=== PATIENT | male | born 1960 | race Caucasian/White ===

== ENCOUNTER 2018-09-16 08:22 | Emergency (ER) | payer SELFPAY ==
[2018-09-16] MEDS ORDERED: 0.9 % SODIUM CHLORIDE 1,000 ML BAG IV ONE (08:34)
[2018-09-16] MEDS ORDERED: KETOROLAC 30 MG/ML VIAL IVP ONE (08:34)
--- NOTE | 2018-09-16 08:39 | Emergency Department Record ---
History of Present Illness - General Chief Complaint: Abdominal Pain Stated Complaint: ABD PAIN Time Seen by Provider: 09/16/18 08:34 Source: Patient, Family Mode of Arrival: Ambulatory Limitations: No limitations - History of Present Illness Initial Comments: 58 yo male presents with RUQ pain for the last four days. The pain is sharp and aches. The pain comes and goes but seems to occur about 30 minutes after meals. He has loss of appetite and nausea but no vomiting or diarrhea. His stool has become softer during the 4 days. No blood in his stools. No rash. No chest pain or shortness of breath. No fevers or chills. No history of abdominal surgery. The pain remains in the RUQ without significant radiation and does not cross the midline or go to the chest or back. No relation to position or activity or exertion. No current PCP. The pain at the time of this interview is mild. MD Complaint: Abdominal pain (RUQ) -: Days(s) (4) Location: RUQ Radiation: RUQ Migration to: RUQ Quality: Aching, Cramping, Sharp Consistency: Intermittent Improves With: Nothing Worsens With: Eating Context: Other Associated Symptoms: Anorexia - Related Data Previous Rx's Medication Instructions Recorded Ranitidine HCl [Zantac] 150 mg PO BID #60 tablet 09/16/18 Allergies Allergy/AdvReac Type Severity Reaction Status Date / Time No Known Drug Allergies Allergy Verified 09/16/18 08:31 Review of Systems Constitutional: Denies: Chills, Fever, Malaise, Weakness Eyes: Denies: Eye discharge, Eye pain, Photophobia, Vision change ENT: Denies: Congestion, Dental pain, Ear pain, Throat pain Respiratory: Denies: Cough, Dyspnea, Hemoptysis, Stridor, Wheezes Cardiovascular: Denies: Chest pain, Palpitations, Syncope Endocrine: Denies: Fatigue, Polydipsia, Polyuria Gastrointestinal: Reports: As per HPI, Abdominal pain, Nausea. Denies: Constipation, Diarrhea, Hematemesis, Hematochezia, Melena, Vomiting Genitourinary: Denies: Dysuria, Frequency, Hematuria Musculoskeletal: Reports: Arthralgia, Gout. Denies: Back pain, Myalgia Skin: Denies: Bruising, Change in color, Rash Neurological: Denies: Confusion, Headache Psychiatric: Denies: Anxiety Hematological/Lymphatic: Denies: Blood Clots, Easy bleeding, Easy bruising, Swollen glands Physical Exam - General General Appearance: Alert, Oriented x3, Cooperative, No acute distress Limitations: No limitations - Head Head exam: Atraumatic, Normal inspection - Eye Eye exam: Normal appearance, PERRL. negative: Conjunctival injection, Scleral icterus - ENT ENT exam: Normal exam Ear exam: Normal external inspection Nasal Exam: Normal inspection Mouth exam: Normal external inspection - Neck Neck exam: Normal inspection - Respiratory Respiratory exam: Normal lung sounds bilaterally. negative: Respiratory distress - Cardiovascular Cardiovascular Exam: Regular rate, Normal rhythm, Normal heart sounds - GI/Abdominal GI/Abdominal exam: Soft. negative: Distended, Guarding, Rebound, Rigid, Tenderness - Rectal Rectal exam: Deferred - exam: Deferred - Extremities Extremities exam: Normal inspection. negative: Pedal edema - Back Back exam: Denies: CVA tenderness (R), CVA tenderness (L) - Neurological Neurological exam: Alert, Oriented X3 - Psychiatric Psychiatric exam: Normal affect, Normal mood. negative: Agitated, Anxious - Skin Skin exam: Dry, Intact, Normal color, Warm Course - Reevaluation(s) Reevaluation #1: 09/16/18 09:07 The CBC was reviewed WBC is 15. The Hgb is 15 09/16/18 09:42 The TBili is 1.1 and the AST is 153 Normal ALT, Alk Phos and Lipase. 09/16/18 10:02 The US was negative for acute process We discussed the results of the tests and questions were answered at the time of discharge. The patient is doing well and is comfortable with DC. DC vitals were reviewed. We discussed at length reasons to immediately return to the ED as well as close follow up. The patient will call the PCP for close follow up of this ED visit to review this visit and the tests performed We discussed that some people have non functioning gall bladders and may need a HIDA scan or general surgery referral if not improving. Medical Decision Making - Lab Data Result diagrams: 09/16/18 08:35 09/16/18 08:35 Disposition Disposition: Discharge Clinical Impression: Right upper quadrant pain Disposition: Home, Self-Care Condition: (1) Good Instructions: Abdominal Pain (ED) Additional Instructions: Call your doctor for the next available follow up appointment Return to the ER for a recheck if worse, any new concerns or questions Take the prescriptions provided as directed Review this ER visit and the tests performed with your family doctor Prescriptions: Ranitidine HCl [Zantac] 150 mg PO BID #60 tablet Referrals: Sanchez Rome [DOCTOR OF OSTEOPATH] - Forms: Patient Portal Access Time of Disposition: 10:04 Quality - Quality Measures Quality Measures: N/A - Blood Pressure Screening Does Patient Have Any of the Following: No Blood Pressure Classification: Pre-Hypertensive BP Reading Systolic Measurement: 130 Diastolic Measurement: 89 Screening for High Blood Pressure: < Pre-Hypertensive BP, F/U Documented > [ [id number]] Pre-Hypertensive Follow-up Interventions: Referral to alternative/primary care provider.
[2018-09-16 08:55] LABS: HEMATOCRIT 42.3 % (42.0-52.0); HEMOGLOBIN 15.3 gm/dl (14.0-18.0); MEAN CELL VOLUME 88.1 fl (81-97); MEAN CORPUSCULAR HEMOGLOBIN 31.9 pg (27-33); MEAN CORPUSCULAR HGB CONC 36.2 g/dl (32-36); MEAN PLATELET VOLUME 10.1 fl (7.4-10.4); PLATELET COUNT 262 K/uL (130-400); RED CELL DISTRIBUTION WIDTH 12.5 % (11.5-14.5); WHITE BLOOD COUNT W/O DIFF 15.1 K/uL (4.2-12.2)
[2018-09-16 09:05] LABS: BLOOD UREA NITROGEN 13 mg/dL (6-20); CREATININE 0.9 mg/dL (0.7-1.2); EST GLOMERULAR FILTRATION RATE > 60 mL/min
[2018-09-16 09:06] LABS: LIPASE 20 U/L (13-60); TOTAL PROTEIN 7.4 g/dL (6.6-8.7)
[2018-09-16 09:08] LABS: GLUCOSE,RANDOM 107 mg/dL (74-109)
[2018-09-16 09:10] LABS: ALB/GLOB RATIO 1.6 (1.1-1.8); ALBUMIN 4.6 g/dL (4.0-5.0); ALT/SGPT 34 U/L (<41); AST/SGOT 153 U/L (10.0-50.0)
[2018-09-16 09:11] LABS: ALKALINE PHOSPHATASE 73 U/L (40-129)
[2018-09-16 10:19] LABS: URINE APPEARANCE CLEAR; URINE BILIRUBIN NEGATIVE (NEGATIVE); URINE BLOOD SMALL (NEGATIVE); URINE COLOR YELLOW; URINE GLUCOSE (UA) NEGATIVE (NEGATIVE); URINE KETONE 15 mg/dL (NEGATIVE); URINE LEUKOCYTE ESTERASE NEGATIVE (NEGATIVE); URINE NITRITE NEGATIVE (NEGATIVE); URINE PROTEIN NEGATIVE (NEGATIVE); URINE UROBILINOGEN 0.2 E.U./dL (0.20 - 1.00)
[2018-09-16 10:35] LABS: URINE EPITHELIAL CELLS 0 - 2 (FEW); URINE RBC 0 - 2 (NONE SEEN); URINE WBC 0 - 2 (0-2/hpf)
--- NOTE | 2018-09-20 08:28 | ULTRASOUND REPORT ---
EXAM: ULTRASOUND OF THE ABDOMEN COMPLETE HISTORY: RIGHT UPPER QUADRANT ABDOMINAL PAIN FOR FIVE DAYS RADIATING TO BACK. TECHNIQUE: Routine ultrasound of the abdomen was performed. Comparison: None. FINDINGS: The pancreas is without focal abnormality. The abdominal aorta is without aneurysmal dilatation and the intrahepatic IVC is patent. The visualized liver is homogeneous in echotexture and there is no intra or extrahepatic biliary ductal dilatation seen with the common hepatic duct measuring 2 mm. The gallbladder is normal in appearance and there is a negative sonographic Aquino's sign. The spleen is not enlarged and is homogeneous in echotexture. Screening evaluation of the kidneys does not demonstrate hydronephrosis nor mass with the right kidney measuring 10 cm in length and left kidney measuring 11 cm in length. IMPRESSION: NEGATIVE SONOGRAPHIC APPEARANCE OF THE ABDOMEN. JOB NUMBER: [id number] [facility]
== END 2018-09-16 10:51 | disposition home or self-care (01) ==
LOC: ER 08:22
DX: R10.11 Right upper quadrant pain (principal); R11.0 Nausea
CPT/HCPCS: 99284 ×2; 96374; 83690; 80053; 81001; 85027; 76700; J1885; J7030